=== PATIENT | female | born 1935 | race Caucasian/White ===

== ENCOUNTER → 2018-04-26 | Outpatient (CLI) | payer OTHER ==
[2018-04-26 17:56] LABS: BASO % 0.7 %; BASO ABS # 0.05 K/uL (0-0.2); EOS % 10.1 %; EOS ABS # 0.74 K/uL (0-0.5); HEMATOCRIT 40.3 % (37-47); IG# 0.01 K/uL (0.00-0.02); LYMPH % 28.6 %; MEAN CELL VOLUME 96.4 fL (80-100); MEAN CORPUSCULAR HEMOGLOBIN 31.1 pg (25-34); MEAN CORPUSCULAR HGB CONC 32.3 g/dl (32-36); MEAN PLATELET VOLUME 10.3 fL (7.4-10.4); MONO ABS # 0.59 K/uL (0.11-0.59); NEUT % 52.5 %; NEUT ABS # 3.84 K/uL (1.4-6.5); PLATELET COUNT 231 K/uL (130-400); RED CELL DISTRIBUTION WIDTH CV 14.6 % (11.5-14.5); RED CELL DISTRIBUTION WIDTH SD 51.5 fL (36.4-46.3); WHITE BLOOD COUNT 7.33 K/uL (4.8-10.8)
== END | disposition home or self-care (01) ==
LOC: C.LABMFLN 12:47
PROVIDERS: ATTEND Family Medicine
DX: E78.5 Hyperlipidemia, unspecified (principal); I50.32 Chronic diastolic (congestive) heart failure; D51.0 Vitamin B12 deficiency anemia due to intrinsic factor deficiency; R53.83 Other fatigue; I11.0 Hypertensive heart disease with heart failure